=== PATIENT | male | born 1975 | race American Indian/Alaskan Native ===

== ENCOUNTER 2016-12-06 12:31 | Emergency (ER) | payer MEDICAID ==
[2016-12-06 18:18] VITALS: BP 118/75
[2016-12-06] MEDS ORDERED: THERMAZENE 50 GRAM TP ONE ×2 (18:28→18:45)
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
[2016-12-06] MEDS ORDERED: BOOSTRIX IM ONE (18:43)
== END 2016-12-06 19:09 | disposition home or self-care (01) ==
LOC: ED 12:31
DX: T23.202A Burn of second degree of left hand, unspecified site, initial encounter (principal); I10 Essential (primary) hypertension; F17.200 Nicotine dependence, unspecified, uncomplicated; X19.XXXA Contact with other heat and hot substances, initial encounter; Y93.89 Activity, other specified; Y92.9 Unspecified place or not applicable; Y99.9 Unspecified external cause status
CPT/HCPCS: 90471; 90715; 99282

== ENCOUNTER 2019-07-25 18:37 | Emergency (ER) | payer MEDICAID ==
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
[2019-07-25 22:20] LABS: Basophils % (Auto) 0.2 % (0.0-1.8); Eosinophils # (Auto) 0.5 K/mm3 (0.0-0.4); Eosinophils % (Auto) 4.3 % (0.0-4.3); Hematocrit 40.3 % (35.5-45.6); Hemoglobin 13.7 gm/dl (11.8-15.2); Lymphocytes # (Auto) 1.8 K/mm3 (1.2-5.4); Lymphocytes % (Auto) 14.7 % (13.4-35.0); Mean Corpuscular HGB Conc 34 % (32-34); Mean Corpuscular Volume 88 fl (84-94); Monocytes # (Auto) 0.5 K/mm3 (0.0-0.8); Monocytes % (Auto) 4.4 % (0.0-7.3); Platelet Count 276 K/mm3 (140-440); Red Blood Count 4.59 M/mm3 (3.65-5.03); Red Cell Distribution Width 14.9 % (13.2-15.2)
[2019-07-25 22:51] LABS: Alanine Aminotransferase 15 units/L (7-56); Albumin 3.8 g/dL (3.9-5); BUN/Creatinine Ratio 20; Blood Urea Nitrogen 14 mg/dL (9-20); Hemolysis Index 17
[2019-07-25 23:01] LABS: Calcium 9.3 mg/dL (8.4-10.2)
--- NOTE | 2019-07-25 23:50 | Cat Scan Report ---
CT ABDOMEN AND PELVIS WITHOUT CONTRAST INDICATION: Hematuria TECHNICAL: Multiple axial CT images of the abdomen and pelvis were acquired without intravenous contr ast. Sagittal and coronal reformats were obtained. All CTs at this facility utilize dose reduction techniques including automated exposure control, iterative reconstruction and weight based dosing whe n appropriate to reduce patient radiation dose to as low as reasonable achievable. COMPARISON: No prior studies are available for comparison. FINDINGS: Limited imaging of the bilateral lung bases demonstrates dependent atelectasis. Abdomen: Within the limitations of today's noncontrast study, the liver, spleen, gallbladder, pancrea s, bilateral adrenal glands and bilateral kidneys show no evidence of acute abnormality. There is no evidence of hydronephrosis or perinephric stranding. There is no bowel obstruction or free fluid. The appendix is visualized and appears normal. No obstructing ureteral stone is identified. Pelvis: Urinary bladder appears normal. No free pelvic fluid is identified. Bones and Soft Tissues: Evaluation of bony structures demonstrate dystrophic changes of both hips. IMPRESSION: 1. No CT evidence of acute inflammatory or obstructive process within the abdomen or pelvis. Signer Name: Carolina Curran MD Signed: 07/25/2019 11:46 PM Workstation Name: [id number]
[2019-07-26 01:20] LABS: Bacteria,Urine 2+ /HPF (Negative); Bilirubin,Urine NEG (Negative); Blood,Urine LG (Negative); Color,Urine Amber (Yellow); Mucus,Urine 3+ /HPF
[2019-07-26 01:21] LABS: WBC,Urine > 182.0 /HPF (0.0-6.0)
[2019-07-26] MEDS ORDERED: levoFLOXacin 750 MG TAB PO ONE (02:14)
[2019-07-26 03:28] VITALS: BP 97/66
== END 2019-07-26 03:34 | disposition home or self-care (01) ==
LOC: ED 18:37
DX: R31.9 Hematuria, unspecified (principal); N39.0 Urinary tract infection, site not specified; I10 Essential (primary) hypertension; F17.200 Nicotine dependence, unspecified, uncomplicated; Z79.899 Other long term (current) drug therapy; Z88.8 Allergy status to other drugs, medicaments and biological substances
CPT/HCPCS: 36415; 74176; 80053; 81001; 85025

== ENCOUNTER 2020-07-05 09:42 | Emergency (ER) | payer MEDICAID ==
[2020-07-05 09:49] VITALS: BP 124/75
[2020-07-05 10:09] LABS: Bacteria,Urine 1+ /HPF (Negative); Bilirubin,Urine NEG (Negative); Blood,Urine NEG (Negative); Color,Urine Yellow (Yellow); Mucus,Urine FEW /HPF; Protein,Urine <15 mg/dL mg/dL (Negative); Urobilinogen,Urine < 2.0 mg/dL (<2.0)
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
== END 2020-07-05 11:32 | disposition home or self-care (01) ==
LOC: ED 09:42
DX: N39.0 Urinary tract infection, site not specified (principal); I10 Essential (primary) hypertension; Z98.890 Other specified postprocedural states; Z79.899 Other long term (current) drug therapy; Z88.1 Allergy status to other antibiotic agents
CPT/HCPCS: 81001; 87086

== ENCOUNTER 2020-10-24 14:01 | Emergency (ER) | payer MEDICAID ==
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
[2020-10-24 17:50] LABS: Bacteria,Urine 1+ /HPF (Negative); Bilirubin,Urine NEG (Negative); Blood,Urine SM (Negative); Color,Urine Yellow (Yellow); Mucus,Urine FEW /HPF; Protein,Urine <15 mg/dL mg/dL (Negative); Urobilinogen,Urine < 2.0 mg/dL (<2.0)
[2020-10-24 18:17] VITALS: BP 101/76
== END 2020-10-24 18:31 | disposition home or self-care (01) ==
LOC: ED 14:01
DX: R30.0 Dysuria (principal); I10 Essential (primary) hypertension; Z88.8 Allergy status to other drugs, medicaments and biological substances; Z79.899 Other long term (current) drug therapy; Z98.890 Other specified postprocedural states
CPT/HCPCS: 81001; 87086; 99283

== ENCOUNTER 2021-06-11 10:03 | Outpatient (CLI) | payer MEDICAID ==
--- NOTE | 2021-06-11 12:16 | Cat Scan Report ---
CT ABDOMEN AND PELVIS WITHOUT CONTRAST INDICATION / CLINICAL INFORMATION: UTI. TECHNIQUE: Axial CT images were obtained through the abdomen and pelvis without IV contrast. All CT scans at this location are performed using CT dose reduction for ALARA by means of automated exposure control. COMPARISON: 07/25/2019 FINDINGS: LOWER CHEST: Bibasilar atelectasis with mild nodular opacity in the right lung base which could refle ct mild pneumonia. LIVER: No significant abnormality. GALLBLADDER: No significant abnormality. BILE DUCTS: No significant abnormality. PANCREAS: No significant abnormality. SPLEEN: No significant abnormality. ADRENALS: No significant abnormality. RIGHT KIDNEY / URETER: No significant abnormality. LEFT KIDNEY / URETER: No significant abnormality. STOMACH / SMALL BOWEL: No significant abnormality. COLON: No significant abnormality. APPENDIX: No significant abnormality. PERITONEUM: No free fluid. No free air. No fluid collection. LYMPH NODES: No significant adenopathy. AORTA / ARTERIES: Mild atherosclerotic calcification without acute abnormality. IVC / VEINS: No significant abnormality. URINARY BLADDER: Minimal urinary bladder wall thickening. REPRODUCTIVE ORGANS: No significant abnormality. ADDITIONAL FINDINGS: Heterotopic ossification about the bilateral hip joints, similar with reference. SKELETAL SYSTEM: No significant abnormality. IMPRESSION: 1. Urinary bladder wall thickening, could be seen in setting of cystitis. Recommend correlation with urinary analysis. 2. Bibasilar atelectasis with mild nodular opacities in the right lung base, recommend clinical lucero elation for pneumonia. Overall, this is somewhat similar with reference exam and may reflect a chroni c process. 3. Other chronic findings as above. Signer Name: Roshan Lam MD Signed: 06/11/2021 12:11 PM Workstation Name: [id number]
== END 2021-06-11 10:04 | disposition home or self-care (01) ==
LOC: CT 10:03
PROVIDERS: ATTEND Urology
DX: N32.89 Other specified disorders of bladder (principal); N39.0 Urinary tract infection, site not specified; J98.11 Atelectasis; R91.1 Solitary pulmonary nodule
CPT/HCPCS: 74176

== ENCOUNTER 2021-08-01 10:51 | Emergency (ER) | payer MEDICAID ==
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
[2021-08-01 17:52] LABS: Bilirubin,Urine NEG (Negative); Blood,Urine NEG (Negative); Color,Urine Yellow (Yellow); Protein,Urine <15 mg/dL mg/dL (Negative); Urobilinogen,Urine < 2.0 mg/dL (<2.0)
[2021-08-01] MEDS ORDERED: LIDOCAINE-MPF (1%) 10 MG/1 ML VIAL 5 ML INFILTRATI ONE (18:35)
[2021-08-01 18:54] VITALS: BP 120/68
== END 2021-08-01 18:45 | disposition home or self-care (01) ==
LOC: ED 10:51
DX: R82.90 Unspecified abnormal findings in urine (principal); R05.9 Cough, unspecified; R06.2 Wheezing; G82.20 Paraplegia, unspecified; I10 Essential (primary) hypertension; Z98.890 Other specified postprocedural states; Z88.1 Allergy status to other antibiotic agents
CPT/HCPCS: 71045; 81001; 87086; 99283; J0696; J3490

== ENCOUNTER 2021-11-05 10:49 | Emergency (ER) | payer MEDICAID ==
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
[2021-11-05 12:53] LABS: Blood Urea Nitrogen 16 mg/dL (9-20); Calcium 9.2 mg/dL (8.4-10.2); Hemolysis Index 13
[2021-11-05 13:09] LABS: BUN/Creatinine Ratio 27
[2021-11-05 13:38] LABS: Bacteria,Urine 1+ /HPF (Negative); Bilirubin,Urine NEG (Negative); Blood,Urine SM (Negative); Color,Urine Yellow (Yellow); Mucus,Urine FEW /HPF; Protein,Urine <15 mg/dL mg/dL (Negative); Urobilinogen,Urine < 2.0 mg/dL (<2.0)
[2021-11-05] MEDS ORDERED: LIDOCAINE-MPF (1%) 10 MG/1 ML VIAL 5 ML INFILTRATI ONE (13:45)
[2021-11-05 14:00] VITALS: BP 139/77
== END 2021-11-05 14:16 | disposition home or self-care (01) ==
LOC: ED 10:49
DX: N39.0 Urinary tract infection, site not specified (principal); I10 Essential (primary) hypertension; Z88.1 Allergy status to other antibiotic agents
CPT/HCPCS: 36415; 80048; 81001; 96372; 99283; J0696; J3490